=== PATIENT | male | born 1995 | race Caucasian/White ===

== ENCOUNTER 2017-04-03 18:08 | Emergency (ER) | payer BC ==
[2017-04-03 19:52] VITALS: BP 128/73
--- NOTE | 2017-04-03 20:22 | UC ---
Throat Pain/Nasal Ricci HPI - HPI Summary HPI Summary: Pt presents with sore throat for the last 4 days. Getting increasingly more painful and red. Has had strep in the past and this feels the same. [place] feverish today and has been taking ibuprofen, which helps. Denies cough, SOB, chest pain, abdominal pain, n/v/d/c, or body aches. - History of Current Complaint Chief Complaint: UCRespiratory Stated Complaint: SORE THROAT Time Seen by Provider: 04/03/17 20:08 Hx Obtained From: Patient Onset/Duration: Gradual Onset Severity: Severe Pain Intensity: 8 Pain Scale Used: 0-10 Numeric - Allergies/Home Medications Allergies/Adverse Reactions: Allergies Allergy/AdvReac Type Severity Reaction Status Date / Time CATS Allergy Severe SNEEZING, Uncoded 04/03/17 19:52 ITCHY EYES [place] Allergy ITCHY Uncoded 04/03/17 19:52 THROAT Home Medications: Home Medications Ibuprofen TAB* [Advil TAB*] 400 mg PO ONCE PRN 04/03/17 [History Confirmed 04/03] PMH/Surg Hx/FS Hx/Imm Hx Previously Healthy: Yes - Surgical History Surgical History: None - Social History Occupation: Employed Full-time Lives: Alone Alcohol Use: None Substance Use Type: None Smoking Status (MU): Never Smoked Tobacco Review of Systems Constitutional: Fever Skin: Negative Eyes: Negative ENT: Sore Throat Respiratory: Negative Cardiovascular: Negative Gastrointestinal: Negative Neurovascular: Negative Musculoskeletal: Negative Psychological: Negative All Other Systems Reviewed And Are Negative: Yes Physical Exam Triage Information Reviewed: Yes Appearance: Well-Appearing, No Pain Distress, Well-Nourished Vital Signs: Initial Vital Signs Temp 98.8 F 04/03/17 19:50 Pulse 74 04/03/17 19:50 Resp 16 04/03/17 19:50 BP 128/73 04/03/17 19:50 Pulse Ox 100 04/03/17 19:50 Vital Signs Reviewed: Yes Eyes: Positive: Conjunctiva Clear. Negative: Conjunctiva Inflamed, Discharge ENT: Positive: Hearing grossly normal, Pharyngeal erythema, TMs normal, Tonsillar swelling, Uvula midline. Negative: Nasal congestion, Nasal drainage, TM bulging, TM dull, TM red, Tonsillar exudate, Hoarse voice, Sinus tenderness Neck: Positive: Supple, No Lymphadenopathy, Other: - Left tonsillar TTP Respiratory: Positive: Chest non-tender, Lungs clear, Normal breath sounds, No respiratory distress, No accessory muscle use Cardiovascular: Positive: RRR, No Murmur, Pulses Normal Neurological: Positive: Alert Psychological: Positive: Age Appropriate Behavior Skin: Negative: rashes Throat Pain/Nasal Course/Dx - Course Course Of Treatment: Strep swab negative. However his sore throat is getting increasingly worse - will treat with amoxicillin. - Differential Dx/Diagnosis Provider Diagnoses: Strep pharyngitis Discharge - Discharge Plan Condition: Stable Disposition: HOME Prescriptions: Amoxicillin PO (*) [Amoxicillin 500 MG CAP*] 500 mg PO Q12H #20 cap Patient Education Materials: Strep Throat (DC) Referrals: Josie Saleh MD [Primary Care Provider] - Additional Instructions: If you develop a fever, shortness of breath, chest pain, new or worsening symptoms - please call your PCP or go to the ED.
[2017-04-03] MEDS ORDERED: Amoxicillin PO (*) 500 MG CAP PO ONE ×2 (20:26)
== END 2017-04-03 20:51 | disposition home or self-care (01) ==
LOC: UCEAST 18:08
DX: J02.0 Streptococcal pharyngitis (principal); Z91.018 Allergy to other foods
CPT/HCPCS: 87651; 99212; A9270-GY; G0463